=== PATIENT | female | born 1980 | race African-American/Black ===

== ENCOUNTER 2017-06-16 14:41 | Inpatient (IN) | payer MEDICAID, OTHER ==
[~2017-06-16] VITALS: Ht 165.1 cm; Wt 128.3 kg
[2017-06-16] VITALS (9 sets, daily range): BP systolic 146–214; BP diastolic 93–122; PULSE 66–93; RESP 14–20; TEMP 98.8; O2SAT 97–100
[~2017-06-16 14:41] MED LIST: BLOOD PRESSURE; CEPH500C3 PO
[2017-06-16] MEDS ORDERED: SPIR100T PO (15:58)
[2017-06-16] MEDS ORDERED: FURO40TA PO (15:58)
[2017-06-16] MEDS ORDERED: DOXA1TAB34 PO (15:58)
[2017-06-16] MEDS ORDERED: VALS1TAB63 PO (15:58)
[2017-06-16] MEDS ORDERED: CARV25TA PO (15:58)
[2017-06-16] MEDS ORDERED: SODIUM CHLORIDE 0.9% FLUSH 10 ML FLUSH IVF PRN ×2 (17:45→21:45)
[2017-06-16] MEDS ORDERED: cloNIDine HCL 0.2 MG TAB PO ONE (17:45)
[2017-06-16] MEDS ORDERED: PROCHLORPERAZINE INJ 10 MG/2 ML VIAL IVP ONE (17:45)
[2017-06-16] MEDS ORDERED: diphenhydrAMINE HCL 50 MG/ML VIAL IVP ONE (17:45)
--- NOTE | 2017-06-16 18:44 | PD ---
HPI Chief Complaint: Hypertension Time Seen by Provider: 17:24 Travel History International Travel<30 days: No Contact w/Intl Traveler<30days: No Traveled to known affect area: No History of Present Illness HPI 36-year-old female with a history of hypertension. She complains of generalized cephalgia. She has been compliant with her antihypertensives however has had blood pressures above 200 systolic and 100 diastolic routinely. She has had no loss of consciousness. She's had headaches in the past associated with hypertension. She notes once prior similar episode occurred and responded well to clonidine and pt went home with clonidine script for a few days. NO cp/sob. no n/v/d. no diaphoresis. PFSH Past Medical History Congestive Heart Failure: Yes Hypertension: Yes Tetanus Vaccination: Unknown Influenza Vaccination: Yes ?: Not LMP: 2 months/tubal : 8 Para: 2 Miscarriage: 6 Dilation and Curettage (D&C): Yes Tubal Ligation: Yes Past Surgical History Cardiac Surgery: Yes (Pacemaker/defib.) Section: Yes (X's 2) Gynecologic Surgery: Yes (Cerclage, Lt. lumpectomy ) Other Surgery: Yes (LEFT BREAST LUMPECTOMY) Social History Alcohol Use: Yes (Rare) Tobacco Use: No Substance Use: No Allergies-Medications (Allergen,Severity, Reaction): Coded Allergies: No Known Allergies (Unverified , 06/16/17) Reported Meds & Prescriptions Reported Meds & Active Scripts Active Reported Doxazosin (Doxazosin Mesylate) 4 Mg Tab 4 Mg PO DAILY Spironolactone 100 Mg Tab 100 Mg PO DAILY Valsartan 40 Mg Tab 40 Mg PO BID Furosemide 40 Mg Tab 40 Mg PO DAILY Carvedilol 25 Mg Tab 25 Mg PO BID Review of Systems Except as stated in HPI: all other systems reviewed are Neg Physical Exam Narrative GENERAL: WNWD, NAD, 36 yo F SKIN: Warm and dry. HEAD: Atraumatic. Normocephalic. EYES: Pupils equal and round. No scleral icterus. No injection or drainage. ENT: No nasal bleeding or discharge. Mucous membranes pink and moist. NECK: Trachea midline. No JVD. CARDIOVASCULAR: Regular rate and rhythm. RESPIRATORY: No accessory muscle use. Clear to auscultation. Breath sounds equal bilaterally. GASTROINTESTINAL: Abdomen soft, non-tender, nondistended. Hepatic and splenic margins not palpable. MUSCULOSKELETAL: Extremities without clubbing, cyanosis, or edema. No obvious deformities. NEUROLOGICAL: Awake and alert. No obvious cranial nerve deficits. Motor grossly within normal limits. Five out of 5 muscle strength in the arms and legs. Normal speech. PSYCHIATRIC: Appropriate mood and affect; insight and judgment normal. Data Data Last Documented VS Vital Signs Date Time Temp Pulse Resp B/P (MAP) Pulse Ox O2 Delivery O2 Flow Rate FiO2 06/16/17 19:34 86 20 06/16/17 19:33 189/118 (141) 100 06/16/17 14:53 98.8 Room Air Orders Orders Ecg Monitoring (06/16/17 17:32) Iv Access Insert/Monitor (06/16/17 17:32) Oximetry (06/16/17 17:32) Sodium Chloride 0.9% Flush (Ns Flush) (06/16/17 17:45) Prochlorperazine Inj (Compazine Inj) (06/16/17 17:45) Diphenhydramine Inj (Benadryl Inj) (06/16/17 17:45) Clonidine (Catapres) (06/16/17 17:45) Hydralazine Inj (Apresoline Inj) (06/16/17 19:45) MDM Medical Decision Making Medical Screen Exam Complete: Yes Emergency Medical Condition: Yes Differential Diagnosis hypertensive emergency, accelerated HTN, migrain, ICH Narrative Course abortive therapy given clonidine given bp approx 210/110 at 750pm oncoming provider will follow and reassess Diagnosis Primary Impression: Hypertension Qualified Codes: I10 - Essential (primary) hypertension Additional Impression: Cephalgia Qualified Codes: R51 - Headache Referrals: Insurance Administrator 3 days Additional Instructions: FOLLOW UP WITH CHIP PERSON ON MONDAY TO ADJUST HYPERTENSION MEDICATIONS. PLEASE RETURN IF BLOOD PRESSURE DOES NOT IMPROVE TO LESS THAN 200 ON THE TOP OR 100 ON THE BOTTOM. Disposition: 01 DISCHARGE HOME Condition: Stable Kelvin Singh MD Jun 16, 2017 18:44
--- NOTE | 2017-06-16 19:16 | PD ---
Physical Exam Date Seen by Provider: Jun 16, 2017 Time Seen by Provider: 19:15 Narrative Accepted in transfer of care from Dr. Singh Data Data Last Documented VS Vital Signs Date Time Temp Pulse Resp B/P (MAP) Pulse Ox O2 Delivery O2 Flow Rate FiO2 06/16/17 21:00 84 20 175/106 (129) 98 06/16/17 14:53 98.8 Room Air Orders Orders Ecg Monitoring (06/16/17 17:32) Iv Access Insert/Monitor (06/16/17 17:32) Oximetry (06/16/17 17:32) Sodium Chloride 0.9% Flush (Ns Flush) (06/16/17 17:45) Prochlorperazine Inj (Compazine Inj) (06/16/17 17:45) Diphenhydramine Inj (Benadryl Inj) (06/16/17 17:45) Clonidine (Catapres) (06/16/17 17:45) Hydralazine Inj (Apresoline Inj) (06/16/17 19:45) Complete Blood Count With Diff (06/16/17 21:25) Basic Metabolic Panel (Bmp) (06/16/17 21:25) Troponin I (06/16/17 21:25) Electrocardiogram (06/16/17 ) Nitroglycerin 2% Oint (Nitroglycerin 2% (06/16/17 21:30) Carvedilol (Coreg) (06/16/17 21:30) Admit Order (Ed Use Only) (06/16/17 ) ^ Saline Lock (06/16/17 21:42) Resp Oxygen Destin C Titrat 1-4 L (06/16/17 ) Notify Dr: Other (06/16/17 21:42) Sodium Chloride 0.9% Flush (Ns Flush) (06/17/17 09:00) Sodium Chloride 0.9% Flush (Ns Flush) (06/16/17 21:45) Labs Laboratory Tests Test 06/16/17 21:35 White Blood Count 8.8 TH/MM3 Red Blood Count 5.03 MIL/MM3 Hemoglobin 12.9 GM/DL Hematocrit 40.3 % Mean Corpuscular Volume 80.3 FL Mean Corpuscular Hemoglobin 25.6 PG Mean Corpuscular Hemoglobin Concent 31.9 % Red Cell Distribution Width 14.1 % Platelet Count 293 TH/MM3 Mean Platelet Volume 8.7 FL Neutrophils (%) (Auto) 71.4 % Lymphocytes (%) (Auto) 19.9 % Monocytes (%) (Auto) 4.9 % Eosinophils (%) (Auto) 3.1 % Basophils (%) (Auto) 0.7 % Neutrophils # (Auto) 6.2 TH/MM3 Lymphocytes # (Auto) 1.8 TH/MM3 Monocytes # (Auto) 0.4 TH/MM3 Eosinophils # (Auto) 0.3 TH/MM3 Basophils # (Auto) 0.1 TH/MM3 CBC Comment DIFF FINAL Differential Comment Blood Urea Nitrogen 8 MG/DL Creatinine 0.83 MG/DL Random Glucose 102 MG/DL Calcium Level 8.6 MG/DL Sodium Level 137 MEQ/L Potassium Level 3.4 MEQ/L Chloride Level 103 MEQ/L Carbon Dioxide Level 24.2 MEQ/L Anion Gap 10 MEQ/L Estimat Glomerular Filtration Rate 94 ML/MIN Troponin I LESS THAN 0.02 NG/ML [facility] Medical Record Reviewed: Yes Supervised Visit with JOVI: No Interpretation(s) EKG normal sinus rhythm rate 83 moderate intraventricular conduction delay no acute ST elevation or injury pattern CBC & BMP Diagram 06/16/17 21:35 Calcium Level 8.6 Vital Signs Date Time Temp Pulse Resp B/P (MAP) Pulse Ox O2 Delivery O2 Flow Rate FiO2 06/16/17 21:00 84 20 175/106 (129) 98 06/16/17 20:00 79 20 191/100 (130) 98 06/16/17 19:34 86 20 06/16/17 19:33 86 20 189/118 (141) 100 06/16/17 19:10 68 20 183/106 (131) 98 06/16/17 15:55 89 16 214/122 (152) 98 06/16/17 14:53 98.8 93 14 210/112 (144) 97 Room Air Differential Diagnosis Accepted in transfer of care from Dr. Singh please refer to his dictation Narrative Course Accepted in transfer of care from Dr. Singh complete for follow-up of patient response to medications and disposition Patient remained hypertensive after Benadryl Compazine and clonidine her headache has resolved; patient administered hydralazine 10 mg IV Patient notes improvement of blood pressure after hydralazine IV well monitor a bit longer to see if she has recurrent hypertension or if she remains controlled Recheck of blood pressure shows patient again is trending upward but does not want to have an additional dose of hydralazine as she states it makes her feel weird Patient administered her evening dose of carvedilol wall 25 mg by mouth as well as administering 1 inch Nitropaste to the chest wall at this point time patient already on multiple outpatient antihypertensive agents therefore as does not appear to be responding at this time to medications administered in the emergency department recommendation is to admit to the hospital for better but pressure control and patient is agreeable to this; patient's case discussed with on-call have his physician Dr. Nice will admit to her service; CBC basic metabolic panel troponin and EKG ordered for admission labs patient denies any headache visual disturbance dizziness chest pain palpitations shortness of breath sweats nausea vomiting referred neck jaw back shoulder arm or abdominal pain also no upper extremity or lower extremity numbness tingling or weakness and no mid scapular pain. Physician Communication Physician Communication discussed with Dr Nice Diagnosis Primary Impression: Hypertension Qualified Codes: I10 - Essential (primary) hypertension Additional Impression: Cephalgia Qualified Codes: R51 - Headache Admitting Information Admitting Physician Requests: Admit Referrals: Optical Worker 3 days Additional Instruction: FOLLOW UP WITH PUBLIC HEALTH STAFF NURSE ON MONDAY TO ADJUST HYPERTENSION MEDICATIONS. PLEASE RETURN IF BLOOD PRESSURE DOES NOT IMPROVE TO LESS THAN 200 ON THE TOP OR 100 ON THE BOTTOM. Disposition: 01 DISCHARGE HOME Condition: Stable Kamryn Gold MD Jun 16, 2017 19:16
[2017-06-16] MEDS ORDERED: hydrALAZINE HCL 20 MG/ML VIAL IV PUSH ONE (19:45)
[2017-06-16] MEDS ORDERED: NITROGLYCERIN 2% OINT 1 GM PACKET TOPICAL ONE (21:30)
[2017-06-16] MEDS ORDERED: CARVEDILOL 12.5 MG TAB PO ONE (21:30)
[2017-06-16 21:45] LABS: AUTOMATED NEUTROPHIL # 6.2 TH/MM3 (1.8-7.7); BASOPHIL # 0.1 TH/MM3 (0-0.2); BASOPHIL % 0.7 % (0.0-2.0); EOSINOPHIL # 0.3 TH/MM3 (0-0.4); EOSINOPHIL % 3.1 % (0.0-4.0); HEMATOCRIT 40.3 % (35.0-46.0); HEMO FLAGS DIFF FINAL; LYMPH % 19.9 % (9.0-44.0); LYMPHOCYTE # 1.8 TH/MM3 (1.0-4.8); MEAN CELL VOLUME 80.3 FL (80.0-100.0); MEAN CORPUSCULAR HEMOGLOBIN 25.6 PG (27.0-34.0); MEAN CORPUSCULAR HGB CONC 31.9 % (32.0-36.0); MONO % 4.9 % (0.0-8.0); NEUT % 71.4 % (16.0-70.0); PLATELET COUNT 293 TH/MM3 (150-450); RED BLOOD COUNT 5.03 MIL/MM3 (4.00-5.30); RED CELL DISTRIBUTION WIDTH 14.1 % (11.6-17.2); WHITE BLOOD COUNT 8.8 TH/MM3 (4.0-11.0)
[2017-06-16] MEDS ORDERED: BISACODYL 10 MG SUPP RECTAL PRN (21:45)
[2017-06-16] MEDS ORDERED: SODIUM CHLORIDE 0.9% FLUSH 10 ML FLUSH IV FLUSH PRN (21:45)
[2017-06-16] MEDS ORDERED: ACETAMINOPHEN/HYDROcodone 325 MG/5 MG TAB PO PRN (21:45)
[2017-06-16] MEDS ORDERED: ONDANSETRON HCL 4 MG/2 ML VIAL IVP PRN (21:45)
[2017-06-16] MEDS ORDERED: ACETAMINOPHEN 325 MG TAB PO PRN (21:45)
[2017-06-16] MEDS ORDERED: MAGNESIUM HYDROXIDE SUSP 30 ML CUP PO PRN (21:45)
[2017-06-16] MEDS ORDERED: LACTULOSE SYRUP 20 GM/30 ML CUP PO PRN (21:45)
[2017-06-16] MEDS ORDERED: MORPHINE SULFATE 4 MG/ML INJ IV PRN (21:45)
[2017-06-16] MEDS ORDERED: SENNOSIDES 8.6 MG TAB PO PRN (21:45)
[2017-06-16 21:56] LABS: CHLORIDE 103 MEQ/L (98-107); POTASSIUM 3.4 MEQ/L (3.5-5.1); SODIUM (NA) 137 MEQ/L (136-145)
[2017-06-16 21:59] LABS: ANION GAP 10 MEQ/L (5-15); BICARBONATE 24.2 MEQ/L (21.0-32.0); BLOOD UREA NITROGEN 8 MG/DL (7-18)
[2017-06-16 22:02] LABS: GLOMERULAR FILTRATION RATE 94 ML/MIN (>89)
[2017-06-17] VITALS: BP_SYST 137; BP_SYST 151; BP_DIAS 107; BP_DIAS 68; PULSE 84; RESP 18; TEMP 95.9; O2SAT 95
[2017-06-17 04:00] VITALS: BP 131/75; PULSE 80; RESP 18; TEMP 96.5; O2SAT 98
[2017-06-17 08:00] VITALS: BP 153/105; PULSE 100; RESP 18; TEMP 97.7; O2SAT 99
[2017-06-17 08:05] LABS: AUTOMATED NEUTROPHIL # 7.1 TH/MM3 (1.8-7.7); BASOPHIL # 0.2 TH/MM3 (0-0.2); BASOPHIL % 2.4 % (0.0-2.0); EOSINOPHIL # 0.1 TH/MM3 (0-0.4); EOSINOPHIL % 1.5 % (0.0-4.0); HEMATOCRIT 37.3 % (35.0-46.0); HEMO FLAGS DIFF FINAL; LYMPH % 16.1 % (9.0-44.0); LYMPHOCYTE # 1.5 TH/MM3 (1.0-4.8); MEAN CELL VOLUME 79.1 FL (80.0-100.0); MEAN CORPUSCULAR HEMOGLOBIN 25.9 PG (27.0-34.0); MEAN CORPUSCULAR HGB CONC 32.7 % (32.0-36.0); MONO % 7.7 % (0.0-8.0); NEUT % 72.3 % (16.0-70.0); PLATELET COUNT 245 TH/MM3 (150-450); RED BLOOD COUNT 4.71 MIL/MM3 (4.00-5.30); RED CELL DISTRIBUTION WIDTH 13.4 % (11.6-17.2); WHITE BLOOD COUNT 9.6 TH/MM3 (4.0-11.0)
[2017-06-17 08:14] LABS: CHLORIDE 103 MEQ/L (98-107); POTASSIUM 3.9 MEQ/L (3.5-5.1); SODIUM (NA) 136 MEQ/L (136-145)
[2017-06-17 08:20] LABS: ANION GAP 7 MEQ/L (5-15); BICARBONATE 25.9 MEQ/L (21.0-32.0)
[2017-06-17 08:21] LABS: BLOOD UREA NITROGEN 10 MG/DL (7-18)
[2017-06-17 08:23] LABS: ALT (GPT) 19 U/L (10-53)
[2017-06-17 08:24] LABS: AST (GOT) 15 U/L (15-37); GLOMERULAR FILTRATION RATE 83 ML/MIN (>89)
[2017-06-17 08:25] LABS: TOTAL BILIRUBIN ADULT 0.2 MG/DL (0.2-1.0)
[2017-06-17 08:26] LABS: ALKALINE PHOSPHATASE 61 U/L (45-117)
[2017-06-17] MEDS ORDERED: SODIUM CHLORIDE 0.9% FLUSH 10 ML FLUSH IV FLUSH SCH ×2 (09:00)
[2017-06-17] MEDS ORDERED: VALSARTAN 40 MG TAB PO SCH (09:00)
[2017-06-17] MEDS ORDERED: FUROSEMIDE 40 MG TAB PO SCH (09:00)
[2017-06-17] MEDS ORDERED: DOXAZOSIN MESYLATE 4 MG TAB PO SCH (09:00)
[2017-06-17] MEDS ORDERED: CARVEDILOL 12.5 MG TAB PO SCH (09:00)
[2017-06-17] MEDS ORDERED: DOCUSATE SODIUM 50 MG/SENNA 8.6 MG TAB PO SCH (09:00)
[2017-06-17] MEDS ORDERED: SPIRONOLACTONE 100 MG TAB PO SCH (09:00)
[2017-06-17 12:00] VITALS: BP 153/102; PULSE 80; RESP 16; TEMP 96.5; O2SAT 98
[2017-06-17] MEDS ORDERED: AMLO5TAB2 PO (12:57)
[2017-06-17] MEDS ORDERED: AZEL0.055 EACH NARE (12:57)
[2017-06-17] MEDS ORDERED: BUDE8.43 EACH NARE (12:57)
[2017-06-17] MEDS ORDERED: NIFE30TA61 PO (12:59)
[2017-06-17] MEDS ORDERED: NIFEdipine 30 MG SUSTAINED RELEASE TAB PO ONE (13:15)
--- NOTE | 2017-06-17 18:23 | EKG ---
Date Performed: 06/16/2017 Time Performed: 21:44:38 PTAGE: 36 years EKG: Sinus rhythm BORDERLINE RIGHT AXIS DEVIATION MODERATE INTRAVENTRICULAR CONDUCTION DELAY BORDERLINE ECG NO PREVIOUS TRACING DOCTOR: Harry Tobin Interpretating Date/Time 06/17/2017 18:21:59
--- NOTE | 2017-06-17 18:28 | HHI.HP ---
[facility] Eloy French D.O. Admission Diagnosis uncontrolled HTN Diagnoses: Travel History International Travel<30 Days: No Contact w/Intl Traveler <30 Da: No Traveled to Known Affected Are: No History of Present Illness Patient is a pleasant 36-year-old female with a history of hypertension present with a dull throbbing, nonradiating headache over the past 3 days. She notes her blood pressure has been higher over the past few days, up to 180 systolic. She denies missing any of her medications. She denies any illicit drugs. She denies any fevers, chills, chest pain, lightheadedness, dizziness, shortness of breath. She reports that headache has currently resolved. Patient denies any focal signs or symptoms. She does admit to using Afrin multiple times per day, says she wakes up in the night unable to breathe, needs to use Afrin. She also reports taking 4 tablets of Advil as needed for chronic diffuse pain. Review of Systems Except as stated in HPI: all other systems reviewed are Neg Past Family Social History Past Medical History Hypertension Migraines Past Surgical History Left breast lumpectomy Cerclage Pacemaker Reported Medications Doxazosin (Doxazosin Mesylate) 4 Mg Tab 4 Mg PO DAILY Spironolactone 100 Mg Tab 100 Mg PO DAILY Valsartan 40 Mg Tab 40 Mg PO BID Furosemide 40 Mg Tab 40 Mg PO DAILY Carvedilol 25 Mg Tab 25 Mg PO BID Allergies: Coded Allergies: No Known Allergies (Unverified , 06/16/17) Family History Mother with heart disease, kidney failure, CHF. Father with hypertension. Passed way from lung cancer from smoking Social History Patient denies smoking. Denies alcohol. Initially denies illicit drugs, however does report occasional marijuana use to the nurse when family is out of the room. Of note, drug screen is negative. Physical Exam Vital Signs Vital Signs Date Time Temp Pulse Resp B/P (MAP) Pulse Ox O2 Delivery O2 Flow Rate FiO2 06/17/17 12:00 96.5 80 16 153/102 (119) 98 06/17/17 08:00 97.7 100 18 153/105 (121) 99 06/17/17 04:00 96.5 80 18 131/75 (93) 98 06/17/17 00:00 95.9 84 18 151/107 (122) 95 137/68 (91) 06/16/17 23:45 98 21 06/16/17 23:45 66 06/16/17 22:13 74 20 186/98 (127) 98 06/16/17 22:00 86 20 146/93 (110) 98 06/16/17 21:00 84 20 175/106 (129) 98 06/16/17 20:00 79 20 191/100 (130) 98 06/16/17 19:34 86 20 06/16/17 19:33 86 20 189/118 (141) 100 06/16/17 19:10 68 20 183/106 (131) 98 Physical Exam GENERAL: This is a well-nourished, well-developed patient, in no apparent distress. Alert and oriented 3. SKIN: No rashes, ecchymoses or lesions. Cool and dry. HEAD: Atraumatic. Normocephalic. No temporal or scalp tenderness. EYES: Pupils equal round and reactive. Extraocular motions intact. No scleral icterus. No injection or drainage. ENT: Nose without bleeding, purulent drainage or septal hematoma. Throat without erythema, tonsillar hypertrophy or exudate. Uvula midline. Airway patent. NECK: Trachea midline. No JVD.Supple, nontender, no meningeal signs. CARDIOVASCULAR: Regular rate and rhythm without murmurs, gallops, or rubs. RESPIRATORY: Clear to auscultation. Breath sounds equal bilaterally. No wheezes , rales, or rhonchi. GASTROINTESTINAL: Abdomen soft, non-tender, nondistended. No hepato-splenomegaly , or palpable masses. No guarding. MUSCULOSKELETAL: Extremities without clubbing, cyanosis, or edema. No joint tenderness, effusion, or edema noted. No calf tenderness. Negative Homans sign bilaterally. NEUROLOGICAL: Awake and alert. Cranial nerves II through XII intact. Motor and sensory grossly within normal limits. Five out of 5 muscle strength in all muscle groups. Normal speech. Laboratory Laboratory Tests Test 06/16/17 21:35 06/17/17 07:25 06/17/17 12:55 White Blood Count 8.8 9.6 Red Blood Count 5.03 4.71 Hemoglobin 12.9 12.2 Hematocrit 40.3 37.3 Mean Corpuscular Volume 80.3 79.1 Mean Corpuscular Hemoglobin 25.6 25.9 Mean Corpuscular Hemoglobin Concent 31.9 32.7 Red Cell Distribution Width 14.1 13.4 Platelet Count 293 245 Mean Platelet Volume 8.7 9.5 Neutrophils (%) (Auto) 71.4 72.3 Lymphocytes (%) (Auto) 19.9 16.1 Monocytes (%) (Auto) 4.9 7.7 Eosinophils (%) (Auto) 3.1 1.5 Basophils (%) (Auto) 0.7 2.4 Neutrophils # (Auto) 6.2 7.1 Lymphocytes # (Auto) 1.8 1.5 Monocytes # (Auto) 0.4 0.7 Eosinophils # (Auto) 0.3 0.1 Basophils # (Auto) 0.1 0.2 CBC Comment DIFF FINAL DIFF FINAL Differential Comment Blood Urea Nitrogen 8 10 Creatinine 0.83 0.92 Random Glucose 102 110 Calcium Level 8.6 8.8 Sodium Level 137 136 Potassium Level 3.4 3.9 Chloride Level 103 103 Carbon Dioxide Level 24.2 25.9 Anion Gap 10 7 Estimat Glomerular Filtration Rate 94 83 Troponin I LESS THAN 0.02 Total Protein 7.7 Albumin 3.0 Alkaline Phosphatase 61 Aspartate Amino Transf (AST/SGOT) 15 Alanine Aminotransferase (ALT/SGPT) 19 Total Bilirubin 0.2 Urine Opiates Screen NEG Urine Barbiturates Screen NEG Urine Amphetamines Screen NEG Urine Benzodiazepines Screen NEG Urine Cocaine Screen NEG Urine Cannabinoids Screen NEG Result Diagram: 06/17/17 0725 06/17/17724 Caprini VTE Risk Assessment Caprini VTE Risk Assessment: No/Low Risk (score <= 1) Caprini Risk Assessment Model Point Value = 1 Point Value = 2 Point Value = 3 Point Value = 5 Age 41-60 Minor surgery BMI > 25 kg/m2 Swollen legs Varicose veins or History of unexplained or recurrent spontaneous Oral contraceptives or hormone replacement Sepsis (< 1 month) Serious lung disease, including pneumonia (< 1 month) Abnormal pulmonary function Acute myocardial infarction Congestive heart failure (< 1 month) History of inflammatory bowel disease Medical patient at bed rest Age 61-74 Arthroscopic surgery Major open surgery (> 45 min) Laparoscopic surgery (> 45 min) Malignancy Confined to bed (> 72 hours) Immobilizing plaster cast Central venous access Age >= 75 History of VTE Family history of VTE Factor V Leiden Prothrombin [id number] Lupus anticoagulant Anticardiolipin antibodies Elevated serum homocysteine Heparin-induced thrombocytopenia Other congenital or acquired thrombophilia Stroke (< 1 month) Elective arthroplasty Hip, pelvis, or leg fracture Acute spinal cord injury (< 1 month) Prophylaxis Regimen Total Risk Factor Score Risk Level Prophylaxis Regimen 0-1 Low Early ambulation 2 Moderate Order ONE of the following: *Sequential Compression Device (SCD) *Heparin 5000 units SQ BID 3-4 Higher Order ONE of the following medications: *Heparin 5000 units SQ TID *Enoxaparin/Lovenox 40 mg SQ daily (WT < 150 kg, CrCl > 30 mL/min) *Enoxaparin/Lovenox 30 mg SQ daily (WT < 150 kg, CrCl > 10-29 mL/min) *Enoxaparin/Lovenox 30 mg SQ BID (WT < 150 kg, CrCl > 30 mL/min) AND/OR *Sequential Compression Device (SCD) 5 or more Highest Order ONE of the following medications: *Heparin 5000 units SQ TID (Preferred with Epidurals) *Enoxaparin/Lovenox 40 mg SQ daily (WT < 150 kg, CrCl > 30 mL/min) *Enoxaparin/Lovenox 30 mg SQ daily (WT < 150 kg, CrCl > 10-29 mL/min) *Enoxaparin/Lovenox 30 mg SQ BID (WT < 150 kg, CrCl > 30 mL/min) AND *Sequential Compression Device (SCD) Assessment and Plan Assessment and Plan //Accelerated hypertension. -Likely exacerbated by Afrin, high-dose ibuprofen, suspected obstructive sleep apnea. -Improved overnight with clonidine, also restarting home medications. Stable this afternoon in the 150 systolic. We'll start on nifedipine. - Diagnostic workup for sleep apnea as an outpatient. Avoid NSAIDs, wean off Afrin. //Suspected sleep apnea -Likely contributing to hypertension. -Patient reports having chronic difficulty sleeping when on her back. She sleeps on her stomach. She frequently wakes up in the lung night unable to breathe through her nose, and must use the Afrin for this. Have suggested seeing primary care doctor for sleep apnea workup. //Occasional marijuana use. -Recommend strongly against marijuana use, as this can impair ability to organize and adhere to medication regimen. //Allergic rhinitis //Rhinitis medicamentosa -Expect this is exacerbating patient's sleep apnea, and use of Afrin is exacerbating patient's blood pressure. -We'll prescribe nasal steroid, nasal antihistamine to wean patient off Afrin. I've limited patient to 1 spray of Afrin in each nostril in the morning and before bedtime, with the goal to eventually wean off quickly. Discussed Condition With Patient, nurse, family at bedside Almas Caceres MD Jun 17, 2017 18:28
== END 2017-06-17 15:30 | disposition home or self-care (01) | DRG 305 ==
LOC: PHED 14:41 → PHEDA 21:43 → PH3A 22:29
PROVIDERS: ADMIT Internal Medicine; ATTEND Internal Medicine
DX: I10 Essential (primary) hypertension (principal); J30.9 Allergic rhinitis, unspecified; T48.5X5A Adverse effect of other anti-common-cold drugs, initial encounter; F12.90 Cannabis use, unspecified, uncomplicated
CPT/HCPCS: 80048; 80053; 80307; 84484; 85025; 93005; 96374; 96375; J0360; J0780; J1200